=== PATIENT | male | born 1970 | race American Indian/Alaskan Native ===

== ENCOUNTER 2018-10-25 22:47 | Inpatient (IN) | payer BC ==
[2018-10-26 01:16] LABS: BUN/Creatinine Ratio 4; Basophils % (Auto) 0.6 % (0.0-1.8); Blood Urea Nitrogen 3 mg/dL (9-20); Calcium 8.9 mg/dL (8.4-10.2); Eosinophils # (Auto) 0.1 K/mm3 (0.0-0.4); Eosinophils % (Auto) 2.4 % (0.0-4.3); Hematocrit 40.2 % (35.5-45.6); Hemoglobin 13.9 gm/dl (11.8-15.2); Hemolysis Index 7; Lymphocytes # (Auto) 1.9 K/mm3 (1.2-5.4); Lymphocytes % (Auto) 31.7 % (13.4-35.0); Mean Corpuscular HGB Conc 35 % (32-34); Mean Corpuscular Volume 94 fl (84-94); Monocytes # (Auto) 0.8 K/mm3 (0.0-0.8); Monocytes % (Auto) 12.8 % (0.0-7.3); Platelet Count 261 K/mm3 (140-440); Red Blood Count 4.28 M/mm3 (3.65-5.03); Red Cell Distribution Width 14.5 % (13.2-15.2)
[2018-10-26] MEDS ORDERED: NACL 0.9% 1000 ML 1,000 ML IV ONE (01:49)
--- NOTE | 2018-10-26 01:58 | Emergency Department Report ---
ED General Adult HPI - General Chief complaint: Fever Stated complaint: FEVER, VOMITTING, COUGH Time Seen by Provider: 10/26/18 01:36 Source: patient Mode of arrival: Ambulatory Limitations: No Limitations - History of Present Illness Initial comments: 48-year-old -[place]ian male presents to the emergency room for subjective fever cough and vomiting 2 days. Patient reports that he is not able to hold down food but able to drink fluids. Patient does admit to a headache no fever today. Patient last took some [id number]-[id number]-[id number] medicine about 5 PM on Tuesday. Patient does admit to smoke. Patient has no past medical history. Onset/Timin -: days(s) Consistency: intermittent Associated Symptoms: cough, fever/chills, nausea/vomiting, other (headache) Treatments Prior to Arrival: cold therapy - Related Data Allergies Allergy/AdvReac Type Severity Reaction Status Date / Time No Known Allergies Allergy Unverified 10/25/18 23:43 ED Review of Systems ROS: Stated complaint: FEVER, VOMITTING, COUGH Other details as noted in HPI Comment: All other systems reviewed and negative Constitutional: fever Respiratory: cough Gastrointestinal: vomiting Neurological: headache ED Past Medical Hx - Past Medical History Previous Medical History?: No - Surgical History Past Surgical History?: Yes Additional Surgical History: Right knee hardware - Social History Smoking Status: Current Every Day Smoker Substance Use Type: None ED Physical Exam - General Limitations: No Limitations General appearance: alert, in no apparent distress - Head Head exam: Present: atraumatic, normocephalic - Eye Eye exam: Present: normal appearance - ENT ENT exam: Present: mucous membranes moist - Neck Neck exam: Present: normal inspection - Respiratory Respiratory exam: Present: normal lung sounds bilaterally. Absent: respiratory distress - Cardiovascular Cardiovascular Exam: Present: regular rate, normal rhythm. Absent: systolic murmur, diastolic murmur, rubs, gallop - GI/Abdominal GI/Abdominal exam: Present: soft, normal bowel sounds - Rectal Rectal exam: Present: deferred - Extremities Exam Extremities exam: Present: normal inspection - Back Exam Back exam: Present: normal inspection - Neurological Exam Neurological exam: Present: alert, oriented X3 - Psychiatric Psychiatric exam: Present: normal affect, normal mood - Skin Skin exam: Present: warm, dry, intact, normal color. Absent: rash ED Course Vital Signs 10/25/18 10/26/18 10/26/18 23:37 03:00 06:15 Temperature 98.4 F Pulse Rate 91 H 66 73 Respiratory 18 16 16 Rate Blood Pressure 124/79 Blood Pressure 118/69 [Right] O2 Sat by Pulse 100 99 99 Oximetry ED Medical Decision Making - Lab Data Result diagrams: 10/26/18 00:01 10/26/18 10:11 - Radiology Data Radiology results: report reviewed Patient: BREA ALVARADO V MR#: [id number] 1 : 1970 Acct:[id number] Age/Sex: 48 / M ADM Date: 10/25/18 Loc: ED Attending Dr: Ordering Physician: JUSTIN BARTLETT Date of Service: 10/26/18 Procedure(s): XR chest routine 2V Accession Number(s): [id number] cc: JUSTIN BARTLETT Fluoro Time In Minutes: CHEST 2 VIEWS INDICATION: cough. COMPARISON: None. FINDINGS: Support devices: None. Heart: Within normal limits. Lungs/Pleura: No acute air space or interstitial disease. No significant pleural effusion. IMPRESSION: No acute findings. Signer Name: Elías Moon MD Signed: 10/26/2018 2:37 AM Workstation Name: [id number] Transcribed By: ES Dictated By: Elías Moon MD Electronically Authenticated By: Elías Moon MD Signed Date/Time: 10/26/18236 DD/ 5 TD/TT: Critical care attestation.: If time is entered above; I have spent that time in minutes in the direct care of this critically ill patient, excluding procedure time. ED Disposition Clinical Impression: Acute hyponatremia Disposition: OP ADMIT IP TO THIS HOSP Is pt being admited?: Yes Does the pt Need Aspirin: Yes Condition: Stable
--- NOTE | 2018-10-26 02:41 | XRay Report ---
CHEST 2 VIEWS INDICATION: cough. COMPARISON: None. FINDINGS: Support devices: None. Heart: Within normal limits. Lungs/Pleura: No acute air space or interstitial disease. No significant pleural effusion. IMPRESSION: No acute findings. Signer Name: Elías Moon MD Signed: 10/26/2018 2:37 AM Workstation Name: [id number]
[2018-10-26 02:56] LABS: Alanine Aminotransferase 16 units/L (7-56); Albumin 4.4 g/dL (3.9-5); BUN/Creatinine Ratio 3; Blood Urea Nitrogen 2 mg/dL (9-20); Hemolysis Index 10
[2018-10-26] MEDS ORDERED: SODIUM CHLORIDE FLUSH SYRINGE 10 ML IV PRN (04:24)
[2018-10-26] MEDS ORDERED: REGLAN IV PRN (04:24)
[2018-10-26] MEDS ORDERED: ZOFRAN IV PRN (04:24)
[2018-10-26] MEDS ORDERED: TYLENOL PO PRN (04:24)
--- NOTE | 2018-10-26 04:32 | History and Physical Report ---
<SALINAS MERCADO - Last Filed: 10/26/18 05:01> History of Present Illness Date of examination: 10/26/18 Date of admission: 10/26/2018 Chief complaint: N/V History of present illness: 48-year-old male with no significant past medical history who is an ongoing smoker who presents to [facility] ED with complaints of intermittent cough, nausea, an d vomiting for the past 2 day. Pt states that he has not been able to keep any solid food down for the past 2 days. He also c/o of intermittent non productive cough. He has tried OTC cough medicine with no relief. He was unsure as to whether or not he had a fever. He denies chills or diaphoresis. Denies: dyspnea, cp, and diarrhea Past History Past Medical History: No medical history Past Surgical History: Other (right knee surgery) Social history: smoking (current everyday smoker) Family history: no significant family history Medications and Allergies Allergies Allergy/AdvReac Type Severity Reaction Status Date / Time No Known Allergies Allergy Unverified 10/25/18 23:43 Review of Systems All systems: negative Respiratory: cough (no productive) Gastrointestinal: nausea, vomiting Exam - Physical Exam Narrative exam: Physical exam General appearance: Present: NAD, anxious, oriented 3, -[place] adult male - EENT Eyes: Present: PERRL, EOM intact ENT: hearing intact, normal dentition - Neck Neck: Present: supple, normal ROM - Respiratory Respiratory effort: Non-labored Respiratory: CTA bilaterally - Cardiovascular Heart rate: 91 (bpm) Rhythm: SR Heart Sounds: Present: S1 & S2. Absent: rub, click - Extremities Extremities: no ischemia, pulses intact - Peripheral Assessment Peripheral Pulses: within normal limits - Abdominal General gastrointestinal: soft, non-tender, normal bowel sounds - Integumentary Integumentary: Present: warm, dry, scar to right knee from knee surgery done earlier this year - Musculoskeletal Musculoskeletal: normal gait -Neurological Neurological: CN II-XII grossly intact - Psychiatric Psychiatric: cooperative but anxious - Constitutional Vitals: Temp Pulse Resp BP Pulse Ox 98.4 F 91 H 18 124/79 100 10/25/18 23:37 10/25/18 23:37 10/25/18 23:37 10/25/18 23:37 10/25/18 23:37 Results - Labs CBC & Chem 7: 10/26/18 00:01 10/26/18 02:30 Labs: Laboratory Last Values WBC 6.2 K/mm3 (4.5-11.0) 10/26/18 00:01 RBC 4.28 M/mm3 (3.65-5.03) 10/26/18 00:01 Hgb 13.9 gm/dl (11.8-15.2) 10/26/18 00:01 Hct 40.2 % (35.5-45.6) 10/26/18 00:01 MCV 94 fl (84-94) 10/26/18 00:01 MCH 33 pg (28-32) H 10/26/18 00:01 MCHC 35 % (32-34) H 10/26/18 00:01 RDW 14.5 % (13.2-15.2) 10/26/18 00:01 Plt Count 261 K/mm3 (140-440) 10/26/18 00:01 Lymph % (Auto) 31.7 % (13.4-35.0) 10/26/18 00:01 [place] % (Auto) 12.8 % (0.0-7.3) H 10/26/18 00:01 Eos % (Auto) 2.4 % (0.0-4.3) 10/26/18 00:01 Baso % (Auto) 0.6 % (0.0-1.8) 10/26/18 00:01 Lymph # 1.9 K/mm3 (1.2-5.4) 10/26/18 00:01 [place] # 0.8 K/mm3 (0.0-0.8) 10/26/18 00:01 Eos # 0.1 K/mm3 (0.0-0.4) 10/26/18 00:01 Baso # 0.0 K/mm3 (0.0-0.1) 10/26/18 00:01 Seg Neutrophils % 52.5 % (40.0-70.0) 10/26/18 00:01 Seg Neutrophils # 3.2 K/mm3 (1.8-7.7) 10/26/18 00:01 Sodium 124 mmol/L (137-145) L 10/26/18 02:30 Potassium 3.5 mmol/L (3.6-5.0) L 10/26/18 02:30 Chloride 84.6 mmol/L (98-107) L 10/26/18 02:30 Carbon Dioxide 26 mmol/L (22-30) 10/26/18 02:30 17 mmol/L 10/26/18 02:30 BUN 2 mg/dL (9-20) L 10/26/18 02:30 0.7 mg/dL (0.8-1.5) L 10/26/18 02:30 Estimated GFR > 60 ml/min 10/26/18 02:30 3 % 10/26/18 02:30 Glucose 100 mg/dL (75-100) 10/26/18 02:30 Calcium 9.0 mg/dL (8.4-10.2) 10/26/18 02:30 0.70 mg/dL (0.1-1.2) 10/26/18 02:30 AST 28 units/L (5-40) 10/26/18 02:30 ALT 16 units/L (7-56) 10/26/18 02:30 105 units/L (35-129) 10/26/18 02:30 6.7 g/dL (6.3-8.2) 10/26/18 02:30 4.4 g/dL (3.9-5) 10/26/18 02:30 1.9 % 10/26/18 02:30 - Imaging and Cardiology Imaging and Cardiology: CXR FINDINGS: Support devices: None. Heart: Within normal limits. Lungs/Pleura: No acute air space or interstitial disease. No significant pleural effusion. IMPRESSION: No acute findings. Assessment and Plan Assessment and plan: 48-year-old male with no significant past medical history who is an ongoing smoker who presents to [facility] ED with complaints of intermittent cough, nausea, and vomiting for the past 2 days. Hyponatremia -Na 124 -likely secondary to dehydration -IV hydration -Continue to monitor electrolytes, replete as needed Dehydration -receiving IVF -Continue to monitor Hypokalemia -Mild -likelt d/t n/v -Replete -Continue to monitor electrolytes, replete as needed Gastritis -Continue supportive care -Last episode of emesis was at 5pm yesterday -Will start in clears and advance as tolerated Tobacco abuse -Current every day smoker -Counseled for cessation -Nicotine patch when necessary DVT PPX -SCD's Advance Directives: No VTE prophylaxis?: Mechanical Plan of care discussed with patient/family: Yes <JOSE DUGGAN - Last Filed: 10/26/18 05:55> Medications and Allergies Active Meds: Active Medications Acetaminophen (Tylenol) 650 mg PO Q4H PRN PRN Reason: Pain MILD(1-3)/Fever >100.5/MCDERMOTT Sodium Chloride (Nacl 0.9% 1000 Ml) 1,000 mls @ 125 mls/hr IV DIRECT GENESIS Last Admin: 10/26/18 05:21 Dose: 125 mls/hr Documented by: Potassium Chloride (Kcl 10meq/100ml) 10 meq in 100 mls @ 100 mls/hr IV Q1H GENESIS Stop: 10/26/18 06:59 Last Admin: 10/26/18 05:12 Dose: 100 mls/hr Documented by: Metoclopramide HCl (Reglan) 10 mg IV Q6H PRN PRN Reason: Nausea And Vomiting Nicotine (Habitrol) 14 mg TD QDAY GENESIS Ondansetron HCl (Zofran) 4 mg IV Q6H PRN PRN Reason: Nausea And Vomiting Sodium Chloride (Sodium Chloride Flush Syringe 10 Ml) 10 ml IV BID GENESIS Sodium Chloride (Sodium Chloride Flush Syringe 10 Ml) 10 ml IV PRN PRN PRN Reason: LINE FLUSH Exam - Constitutional Vitals: Temp Pulse Resp BP Pulse Ox 98.4 F 91 H 18 124/79 100 10/25/18 23:37 10/25/18 23:37 10/25/18 23:37 10/25/18 23:37 10/25/18 23:37 Results - Labs CBC & Chem 7: 10/26/18 00:01 10/26/18 02:30 Labs: Laboratory Last Values WBC 6.2 K/mm3 (4.5-11.0) 10/26/18 00:01 RBC 4.28 M/mm3 (3.65-5.03) 10/26/18 00:01 Hgb 13.9 gm/dl (11.8-15.2) 10/26/18 00:01 Hct 40.2 % (35.5-45.6) 10/26/18 00:01 MCV 94 fl (84-94) 10/26/18 00:01 MCH 33 pg (28-32) H 10/26/18 00:01 MCHC 35 % (32-34) H 10/26/18 00:01 RDW 14.5 % (13.2-15.2) 10/26/18 00:01 Plt Count 261 K/mm3 (140-440) 10/26/18 00:01 Lymph % (Auto) 31.7 % (13.4-35.0) 10/26/18 00:01 [place] % (Auto) 12.8 % (0.0-7.3) H 10/26/18 00:01 Eos % (Auto) 2.4 % (0.0-4.3) 10/26/18 00:01 Baso % (Auto) 0.6 % (0.0-1.8) 10/26/18 00:01 Lymph # 1.9 K/mm3 (1.2-5.4) 10/26/18 00:01 [place] # 0.8 K/mm3 (0.0-0.8) 10/26/18 00:01 Eos # 0.1 K/mm3 (0.0-0.4) 10/26/18 00:01 Baso # 0.0 K/mm3 (0.0-0.1) 10/26/18 00:01 Seg Neutrophils % 52.5 % (40.0-70.0) 10/26/18 00:01 Seg Neutrophils # 3.2 K/mm3 (1.8-7.7) 10/26/18 00:01 Sodium 124 mmol/L (137-145) L 10/26/18 02:30 Potassium 3.5 mmol/L (3.6-5.0) L 10/26/18 02:30 Chloride 84.6 mmol/L (98-107) L 10/26/18 02:30 Carbon Dioxide 26 mmol/L (22-30) 10/26/18 02:30 17 mmol/L 10/26/18 02:30 BUN 2 mg/dL (9-20) L 10/26/18 02:30 0.7 mg/dL (0.8-1.5) L 10/26/18 02:30 Estimated GFR > 60 ml/min 10/26/18 02:30 3 % 10/26/18 02:30 Glucose 100 mg/dL (75-100) 10/26/18 02:30 Calcium 9.0 mg/dL (8.4-10.2) 10/26/18 02:30 0.70 mg/dL (0.1-1.2) 10/26/18 02:30 AST 28 units/L (5-40) 10/26/18 02:30 ALT 16 units/L (7-56) 10/26/18 02:30 105 units/L (35-129) 10/26/18 02:30 6.7 g/dL (6.3-8.2) 10/26/18 02:30 4.4 g/dL (3.9-5) 10/26/18 02:30 1.9 % 10/26/18 02:30 Assessment and Plan Assessment and plan: 48 Alonso comes emergency room with complaints of nausea vomiting and hyponatremia.agree with iv fluid, check cardiac enzymes
[2018-10-26] MEDS: KCL 10MEQ/100ML 10 MEQ/100 ML BAG IV SCH ×2 (05:12→07:08)
[2018-10-26] MEDS: NACL 0.9% 1000 ML 1,000 ML IV SCH ×3 (05:21→21:42)
[2018-10-26 06:35] LABS: Creatine Kinase MB 2.9 ng/mL (0.0-4.0)
[2018-10-26] MEDS ORDERED: HABITROL TD SCH (10:00)
[2018-10-26 10:56] LABS: Creatine Kinase MB 3.4 ng/mL (0.0-4.0)
[2018-10-26] MEDS: SODIUM CHLORIDE FLUSH SYRINGE 10 ML IV SCH ×2 (11:53→22:12)
[2018-10-26] MEDS ORDERED: MAGNESIUM SULFATE 2GM/50ML 2 GM/50 ML BAG IV ONE (12:43)
--- NOTE | 2018-10-26 12:44 | Event Note ---
Date: 10/26/18 Patient was admitted with generalized weakness and intractable nausea vomiting and severe hyponatremia And elevated CK levels, patient's sodium improved from 120-127 Patient feels slightly better. Still complains of generalized weakness nausea and vomiting Medical records reviewed, continue current management with replacement therapy normal saline Hypomagnesemia corrected with mag sulf IV, closely monitor electrolytes Possible discharge home tomorrow if stable Plan of care is reviewed with the patient and his nurse
[2018-10-27 05:41] LABS: BUN/Creatinine Ratio 5; Blood Urea Nitrogen 4 mg/dL (9-20); Calcium 8.5 mg/dL (8.4-10.2); Hemolysis Index 13
[2018-10-27 06:06] VITALS: BP 99/58
--- NOTE | 2018-10-27 07:25 | Discharge Summary ---
Providers - Providers Date of Admission: 10/26/18 04:24 Date of discharge: 10/27/18 Attending physician: ALEXIS HERNANDEZ [facility] Hospitalization Condition: Stable Disposition: DC-01 TO HOME OR SELFCARE Time spent for discharge: 32 min Core Measure Documentation - Palliative Care Palliative Care/ Comfort Measures: Not Applicable - Core Measures Any of the following diagnoses?: none Exam - Constitutional Vitals: Temp Pulse Resp BP Pulse Ox 98.6 F 96 H 16 99/58 96 10/27/18 05:11 10/27/18 05:11 10/27/18 05:11 10/27/18 05:11 10/27/18 05:11 General appearance: Present: no acute distress, well-nourished - EENT Eyes: Present: PERRL, EOM intact - Neck Neck: Present: supple, normal ROM - Respiratory Respiratory effort: normal Respiratory: bilateral: diminished, negative: rales, rhonchi, wheezing - Cardiovascular Rhythm: regular Heart Sounds: Present: S1 & S2 - Extremities Extremities: no ischemia, No edema Peripheral Pulses: within normal limits - Integumentary Integumentary: Present: clear, warm - Musculoskeletal Musculoskeletal: strength equal bilaterally - Psychiatric Psychiatric: appropriate mood/affect, cooperative - Neurologic Neurologic: CNII-XII intact, moves all extremities Plan Activity: no restrictions Diet: regular Additional Instructions: Plenty oral fluids Follow up with: JASON DE LA PAZCOSBY MD SYL [Primary Care Provider] - 3-5 Days Prescriptions: Nicotine [Habitrol] 14 mg TD QDAY #30 patch
--- NOTE | 2018-10-27 14:12 | Cat Scan Report ---
. CT abdomen pelvis wo con INDICATION: n/v. TECHNIQUE: All CT scans at this location are performed using the following dose modulation technique: Automated exposure control. CONTRAST: None. COMPARISON: None available. CT abdomen: The parenchymal organs are unremarkable in appearance. Negative for abdominal mass, fluid collection or inflammation. The bowel is not dilated or thickened CT PELVIS: Negative for mass, fluid or inflammation. The prostate gland is mildly enlarged. Moderate colonic stool is present diffusely. The appendix is normal. IMPRESSION: 1. Moderate colonic stool. 2. Prostate enlargement. Signer Name: Elías Moon MD Signed: 10/26/2018 6:42 AM Workstation Name: [id number]
== END 2018-10-27 09:55 | disposition home or self-care (01) | DRG 392 ==
LOC: ED 22:47 → 3A 10-26 04:24
PROVIDERS: ADMIT Internal Medicine; ATTEND Internal Medicine
DX: K29.70 Gastritis, unspecified, without bleeding (principal); E87.1 Hypo-osmolality and hyponatremia; E83.42 Hypomagnesemia; F17.200 Nicotine dependence, unspecified, uncomplicated; E86.0 Dehydration; E87.6 Hypokalemia; Z71.6 Tobacco abuse counseling
CPT/HCPCS: 36415; 71046; 74176; 80048; 80053; 82550; 82553; 83735; 84132; 84295; 84484; 85025; 99406; G0378; J3475; J3480; J7030